=== PATIENT | female | born 1990 | race Caucasian/White ===

== ENCOUNTER → 2025-04-12 11:48 | Outpatient (CLI) | payer OTHER, SELFPAY ==
--- NOTE | 2025-04-12 11:51 | DI.US.S_ITS ---
PROCEDURE: US OB <= 14 WEEKS FETUS INDICATIONS: early viability, Hx ectopic OUTSIDE/PRIOR DATING DATA: Last menstrual period (LMP): 02/28/2025. LMP-based estimated date of delivery (NAV): 12/05/2024. First dating scan (date and location): 04/12/2025 Estimated date of delivery (NAV) from first dating scan: 12/05/2024. TECHNIQUE: Real-time scanning was performed of the fetus and maternal pelvic organs, with image documentation. COMPARISON: None. FINDINGS: Intrauterine gestation is seen measuring 0.4 cm, ultrasound age is 6 weeks and 1 day. Cardiac motion is seen rate 117 BPM. Right ovarian cyst is seen with septations measuring 1.5 x 1.7 cm. IMPRESSION: Intrauterine gestation seen with cardiac motion. Ultrasound age is 6 weeks and 1 day. Right ovarian cyst is seen with septations. Attention on follow-up. Dictated by: Isaac Prado M.D. on 04/12/2025 at 12:45 Approved by: Isaac Prado M.D. on 04/12/2025 at 12:47
== END ==
LOC: US 11:51
PROVIDERS: Referring Provider Family Medicine; Visit Provider Family Medicine
DX: O09.899 Supervision of other high risk pregnancies, unspecified trimester (principal); N83.201 Unspecified ovarian cyst, right side; Z3A.01 Less than 8 weeks gestation of pregnancy
CPT/HCPCS: 76801; 76817